=== PATIENT | male | born 1955 | race Caucasian/White ===

== ENCOUNTER 2018-06-22 20:13 | Observation (INO) | payer OTHER ==
[~2018-06-22] VITALS: Ht 193 cm; Wt 99.1 kg
[~2018-06-22 20:13] MED LIST: AVAPRO150 MG PO; GLUCOPHAGE1000 MG PO; JANUVIA100 MG PO; LANSOPRAZOLE30 M1 PO; LIPITOR10 MG PO; LOFIBRA160 MG PO; Z.0.DIOVAN160 MG PO; Z.0.NEXIUM40 MG PO; Z.0.TRICOR145 MG PO
[2018-06-22 21:15] LABS: BASOPHILS # (AUTO) 0.1 (0.0-0.1); BASOPHILS % 0.9 % (0.0-1.0); EOSINOPHILS # (AUTO) 0.1 (0.0-0.4); EOSINOPHILS % 1.2 % (0.0-6.0); HEMATOCRIT 41.3 % (38.2-49.6); MEAN CORPUSCULAR HEMOGLOBIN 30.4 pg (28-32); MEAN CORPUSCULAR HGB CONC 36.3 g/dL (31-35); MEAN CORPUSCULAR VOLUME 83.8 fL (81-99); MONOCYTES # (AUTO) 0.6 (0.2-0.8); MONOCYTES % 9.8 % (4.4-11.3); NEUTROPHILS # (AUTO) 3.8 (2.1-6.9); NEUTROPHILS % 57.5 % (38.7-80.0); PLATELET COUNT 248 x10e3/uL (140-360); RED BLOOD COUNT 4.93 x10e6/uL (4.3-5.7); RED CELL DISTRIBUTION WIDTH 12.3 % (11.7-14.4)
[2018-06-22 21:22] LABS: BILIRUBIN,URINE NEGATIVE (NEGATIVE); CLARITY,URINE SL CLOUDY (CLEAR); COLOR,URINE YELLOW (YELLOW); KETONES,URINE NEGATIVE (NEGATIVE); LEUKOCYTE ESTERASE ,URINE NEGATIVE (NEGATIVE); NITRITE,URINE NEGATIVE (NEGATIVE); PROTEIN,URINE DIPSTICK NEGATIVE (NEGATIVE); URINE UROBILINOGEN 0.2 mg/dL (0.2 - 1)
[2018-06-22 21:22] LABS: INR 0.9; PROTHROMBIN TIME 11.4 seconds (11.9-14.5)
[2018-06-22 21:23] LABS: PARTIAL THROMBOPLASTIN TIME 23.4 seconds (23.8-35.5)
[2018-06-22 21:29] LABS: ALANINE AMINOTRANSFERASE 41 IU/L (0-55); ALBUMIN 4.1 g/dL (3.5-5.0); ALBUMIN/GLOBULIN RATIO 1.3 (0.8-2.0); ALKALINE PHOSPHATASE 94 IU/L (40-150); ANION GAP 17.7 mmol/L (8-16); BLOOD UREA NITROGEN 14 mg/dL (7-26); BUN/CREATININE RATIO 15 (6-25); CALCIUM 9.6 mg/dL (8.4-10.2); CARBON DIOXIDE 22 mmol/L (22-29); CHLORIDE 102 mmol/L (98-107); CREATINE KINASE 100 IU/L (30-200); CREATININE, SERUM 0.91 mg/dL (0.72-1.25); EST GLOMERULAR FILTRATION RATE > 60 ML/MIN (60-); GLUCOSE 257 mg/dL (74-118); POTASSIUM 3.7 mmol/L (3.5-5.1); SODIUM 138 mmol/L (136-145)
--- NOTE | 2018-06-22 22:24 | Diagnostic Imaging Report ---
History:Left-sided numbness Comparison studies: None Technique: Axial images were obtained from the skull base to the vertex. Coronal and sagittal images reconstructed from the axial data. Intravenous contrast: None Findings: Scalp/skull: No abnormalities. Extra-axial spaces: No masses. No fluid collections. Brain sulci: Appropriate for age Ventricles: Normal in size and configuration. No hydrocephalus. Parenchyma: Subtle hypodensities in the supratentorial white matter are small vessel ischemic changes. No masses, hemorrhage, acute or chronic cortical vascular insults. Sellar/suprasellar region: No abnormalities. Craniocervical junction: Patent foramen magnum. No Chiari one malformation. Incidental findings: Mucosal thickening in the posterior wall of the right sphenoid sinus Atherosclerotic calcifications in the carotid siphons and vertebral arteries. Impression: 1. Mild supratentorial white matter small vessel ischemic changes. 2. Otherwise, no abnormalities. Signed by: Dr. Surinder Bey M.D. on 06/22/2018 10:21 PM
--- NOTE | 2018-06-22 22:31 | Diagnostic Imaging Report ---
EXAMINATION: CHEST SINGLE (PORTABLE) INDICATION: Left-sided numbness. COMPARISON: None FINDINGS: TUBES and LINES: None. LUNGS: Lungs are well inflated. Lungs are clear. There is no evidence of pneumonia or pulmonary edema. PLEURA: No pleural effusion or pneumothorax. HEART AND MEDIASTINUM: The cardiomediastinal silhouette is unremarkable. BONES AND SOFT TISSUES: No acute osseous lesion. Soft tissues are unremarkable. UPPER ABDOMEN: No free air under the diaphragm. IMPRESSION: No acute thoracic abnormality. Signed by: Dr. Chivo Sharma M.D. on 06/22/2018 10:28 PM
[2018-06-22] MEDS ORDERED: SODIUM CHLORIDE FLUSH 10 ML SYR INJ PRN (23:30)
[2018-06-22] MEDS ORDERED: DEXTROSE 50% SYRINGE 50 ML IV PRN (23:30)
[2018-06-22] MEDS ORDERED: ONDANSETRON HCL INJ 2 MG/ML VIAL IV PRN (23:30)
[2018-06-22] MEDS ORDERED: ASPIRIN 81 MG CHEW TAB PO ONE (23:30)
[2018-06-23 06:09] LABS: ALANINE AMINOTRANSFERASE 36 IU/L (0-55); ALBUMIN 3.7 g/dL (3.5-5.0); ALBUMIN/GLOBULIN RATIO 1.6 (0.8-2.0); ALKALINE PHOSPHATASE 75 IU/L (40-150); ANION GAP 15.4 mmol/L (8-16); BLOOD UREA NITROGEN 16 mg/dL (7-26); BUN/CREATININE RATIO 20 (6-25); CALCIUM 8.9 mg/dL (8.4-10.2); CARBON DIOXIDE 23 mmol/L (22-29); CHLORIDE 103 mmol/L (98-107); CREATININE, SERUM 0.82 mg/dL (0.72-1.25); EST GLOMERULAR FILTRATION RATE > 60 ML/MIN (60-); GLUCOSE 216 mg/dL (74-118); POTASSIUM 3.4 mmol/L (3.5-5.1); SODIUM 138 mmol/L (136-145)
--- NOTE | 2018-06-23 07:02 | History and Physical ---
POOR AUDIO QUALITY IN MULTIPLE PORTIONS OF THE REPORT REASON FOR ADMISSION: TIA. HISTORY OF PRESENT ILLNESS: Patient is a 62-year-old gentleman with diabetes, who acute sudden-onset of left-sided numbness on the face and left lower leg, where he called me and I told him to come to the emergency room. Brain CT in the ER was negative. He is being admitted for further . PAST MEDICAL HISTORY: Diabetes. MEDICATIONS: See JAN. ALLERGIES: NONE. SOCIAL: Nonsmoker, nondrinker. He lives alone with his . FAMILY HISTORY: Noncontributory. PHYSICAL EXAM VITAL SIGNS: 123/74, pulse 87, sats 98% on room air, temperature 98.6. GENERAL: He is in no apparent distress. NECK: Supple. No lymphadenopathy, no bruits. CARDIOVASCULAR: Regular rate and rhythm. LUNGS: Clear to auscultation bilaterally. ABDOMEN: Good bowel sounds, soft, nontender. EXTREMITIES: There is no clubbing, cyanosis. NEUROLOGICAL: Moves all extremities times 4. Cranial nerves II through XII are intact. ASSESSMENT AND PLAN 1. Transient ischemic attack. Will continue with current care. Continue with aspirin. Will consult neurology. Get carotid Dopplers 2. Diabetes. Continue current care and monitor. Please see hospital chart for full details. Job#: [id number] [id number]
[2018-06-23 07:26] LABS: CREATINE KINASE 67 IU/L (30-200)
[2018-06-23] MEDS: INSULIN REGULAR, HUMAN 100 UNIT/1 ML 3ML VIAL SQ SCH ×4 (08:00→21:00)
[2018-06-23 08:13] LABS: BASOPHILS # (AUTO) 0.1 (0.0-0.1); BASOPHILS % 1.2 % (0.0-1.0); EOSINOPHILS # (AUTO) 0.1 (0.0-0.4); EOSINOPHILS % 1.6 % (0.0-6.0); HEMATOCRIT 37.7 % (38.2-49.6); HEMOGLOBIN 13.5 g/dL (14.0-18.0); LYMPHOCYTES # (AUTO) 1.4 (1.0-3.2); LYMPHOCYTES % 24.5 % (18.0-39.1); MEAN CORPUSCULAR HGB CONC 35.8 g/dL (31-35); MEAN CORPUSCULAR VOLUME 83.8 fL (81-99); MONOCYTES # (AUTO) 0.6 (0.2-0.8); MONOCYTES % 10.4 % (4.4-11.3); NEUTROPHILS # (AUTO) 3.6 (2.1-6.9); NEUTROPHILS % 62.1 % (38.7-80.0); PLATELET COUNT 193 x10e3/uL (140-360); RED CELL DISTRIBUTION WIDTH 12.2 % (11.7-14.4)
[2018-06-23] MEDS ORDERED: SODIUM CHLORIDE 0.9% 50ML 50 ML ONE (08:38)
[2018-06-23] MEDS ORDERED: GADOBENATE DIMEGLUMINE 1 ML IV ONE (08:38)
[2018-06-23] MEDS ORDERED: ASPIRIN 81 MG ENTERIC COATED PO SCH (09:00)
[2018-06-23 15:16] LABS: CREATINE KINASE MB 0.4 ng/mL (0-5.0)
--- NOTE | 2018-06-23 16:11 | Diagnostic Imaging Report ---
EXAMINATION: Brain MRI and MR angiogram of the [place] and [place]ck CLINICAL HISTORY: PICA, left-sided numbness today before that lasted 5 minutes. COMPARISON: Head CT on 06/22/2018 TECHNIQUE: Brain: Sagittal T2; axial DWI, T2, FLAIR, T1-IR, T2 gradient echo; coronal FLAIR. MRAs: 3D TOF and 2D-TOF images were obtained of the brain and neck. Intravenous Contrast: 20 mL of MultiHance. BRAIN MRI FINDINGS: Parenchyma: 1. Scattered supratentorial white matter T2 in FLAIR hyperintense foci, most likely nonspecific chronic microvascular ischemic changes. 2. No mass, hemorrhage, acute or chronic infarcts. Skull: Unremarkable. Vessels: Expected flow voids present in the major arteries and dural sinuses. Extra-axial spaces: No abnormal signal intensity or mass effect. Brain volume: Within normal limits for age. Ventricles: No hydrocephalus or displacement. Foramen magnum: Unremarkable. Sella: Unremarkable. Paranasal / mastoid sinuses: No significant inflammatory disease. MRA OF THE [place] : The distal internal carotid, distal vertebral, basilar, and cerebral arteries are patent. No significant stenosis, occlusion, aneurysm, or arteriovenous malformation is seen. Anatomic variation: Anterior Communicating Artery: Not well visualized Posterior Communicating Arteries: Not well visualized Vertebral arteries: Codominant MRA OF THE NECK: If present, stenosis of the carotid bulbs is measured based on NASCET criteria i.e area of maximum stenosis compared to the cervical ICA distal to the bulb. Aortic arch and origin of the vessels: Unremarkable. Right Carotid Artery: The common carotid, carotid bulb, internal and external carotid arteries at the level of the neck are normal in caliber, and patent, no evidence of stenoses. Left Carotid Artery: The common carotid, carotid bulb, internal and external carotid arteries at the level of the neck are normal in caliber, and patent, no evidence of stenoses. Vertebral Arteries: Both are normal in morphology and caliber. Both are codominant. No significant stenosis is seen. IMPRESSION: 1. No acute or chronic brain infarct. 2. Unchanged mild chronic microvascular ischemic changes. 3. Normal MR angiogram of the head and neck. Particularly no major vessel occlusion or hemodynamically significant stenosis of the carotid or vertebral arteries in the head or neck. Signed by: Dr. Nalini Raymundo M.D. on 06/23/2018 4:08 PM
--- NOTE | 2018-06-23 16:11 | Diagnostic Imaging Report ---
EXAMINATION: Brain MRI and MR angiogram of the [place] CLINICAL HISTORY: PICA, left-sided numbness today before that lasted 5 minutes. COMPARISON: Head CT on 06/22/2018 TECHNIQUE: Brain: Sagittal T2; axial DWI, T2, FLAIR, T1-IR, T2 gradient echo; coronal FLAIR. MRAs: 3D TOF and 2D-TOF images were obtained of the brain and neck. Intravenous Contrast: 20 mL of MultiHance. BRAIN MRI FINDINGS: Parenchyma: 1. Scattered supratentorial white matter T2 in FLAIR hyperintense foci, most likely nonspecific chronic microvascular ischemic changes. 2. No mass, hemorrhage, acute or chronic infarcts. Skull: Unremarkable. Vessels: Expected flow voids present in the major arteries and dural sinuses. Extra-axial spaces: No abnormal signal intensity or mass effect. Brain volume: Within normal limits for age. Ventricles: No hydrocephalus or displacement. Foramen magnum: Unremarkable. Sella: Unremarkable. Paranasal / mastoid sinuses: No significant inflammatory disease. MRA OF THE [place] : The distal internal carotid, distal vertebral, basilar, and cerebral arteries are patent. No significant stenosis, occlusion, aneurysm, or arteriovenous malformation is seen. Anatomic variation: Anterior Communicating Artery: Not well visualized Posterior Communicating Arteries: Not well visualized Vertebral arteries: Codominant MRA OF THE NECK: If present, stenosis of the carotid bulbs is measured based on NASCET criteria i.e area of maximum stenosis compared to the cervical ICA distal to the bulb. Aortic arch and origin of the vessels: Unremarkable. Right Carotid Artery: The common carotid, carotid bulb, internal and external carotid arteries at the level of the neck are normal in caliber, and patent, no evidence of stenoses. Left Carotid Artery: The common carotid, carotid bulb, internal and external carotid arteries at the level of the neck are normal in caliber, and patent, no evidence of stenoses. Vertebral Arteries: Both are normal in morphology and caliber. Both are codominant. No significant stenosis is seen. IMPRESSION: 1. No acute or chronic brain infarct. 2. Unchanged mild chronic microvascular ischemic changes. 3. Normal MR angiogram of the head and neck. Particularly no major vessel occlusion or hemodynamically significant stenosis of the carotid or vertebral arteries in the head or neck. Signed by: Dr. Nalini Raymundo M.D. on 06/23/2018 4:08 PM
[2018-06-23] MEDS ORDERED: METFORMIN HCL1000 MG (19:15)
[2018-06-23] MEDS ORDERED: ATORVASTATIN CA20 MG (19:15)
[2018-06-23] MEDS ORDERED: LANSOPRAZOLE30 MG (19:15)
[2018-06-23] MEDS ORDERED: LOPRESSOR25 MG (19:15)
[2018-06-23 19:50] LABS: CHOLESTEROL 174 MD/DL (0-199); HDL CHOLESTEROL 35 MG/DL (40-60); TRIGLYCERIDES 699 MG/DL (0-149)
[2018-06-23 20:00] VITALS: BP 139/93
[2018-06-23 20:30] VITALS: BP 139/93
--- NOTE | 2018-06-23 20:45 | Consultation ---
DATE OF CONSULTATION: June 23, 2018 NEUROLOGY CONSULT NOTE HISTORY OF PRESENT ILLNESS: Mr. Mitchell is a 62-year-old [id number] man with past medical history significant for hypertension, hyperlipidemia, diabetes mellitus type 2, and coronary artery disease admitted to [facility] under observation status on June 22, 2018 for a transient ischemic attack. At 1915 on June 22, 2018, the patient experienced the sudden onset of left hemibody numbness and tingling as well as dizziness which is further described as a lightheaded sensation. Mr. Mitchell does not endorse a visual field cut or other disturbance, dysarthria, aphasia,, facial droop, hemiparesis, impairment of gait or balance, or confusion. The left hemibody numbness and tingling and dizziness persisted for approximately 4 to 5 minutes, then spontaneously resolved. Mr. Mitchell called his primary care physician, Dr. Evgeny Silverio, to advise him of his symptoms. Dr. Silverio told the patient to proceed to the Emergency Center at [facility] for further evaluation. Upon arrival in the Emergency Center, the patient was afebrile with a blood pressure 170/117 mmHg and pulse 113 beats per minute. His neurological examination was documented as being nonfocal. Mr. Mitchell was given an NIH stroke scale score of 0. A CT of the brain without contrast was performed while the patient was in the Emergency Center. This study did not show evidence of recent large territorial ischemia or hemorrhage. As stated above, Mr. Mitchell was admitted to [facility] under observation status for further evaluation and treatment of his symptoms. Mr. Mitchell does not report experiencing similar symptoms previously. REVIEW OF SYSTEMS: Numbness and tingling over the left mea body, dizziness which is further described as lightheadedness, chronic low back pain. Otherwise the 12 point review of systems is negative. PAST MEDICAL HISTORY: Hypertension, hyperlipidemia, diabetes mellitus type 2, coronary artery disease, arthritis, gastroesophageal reflux disease. FAMILY MEDICAL HISTORY: The patient's paternal and maternal grandparents are . Their medical histories are unknown. The patient's father is alive. He has hypertension as well as a cardiac arrhythmia, status post AICD placement. Mr. Mitchell's mother is . She had diabetes mellitus, coronary artery disease, and congestive heart failure. Mr. Mitchell has 5 siblings, 3 brothers and 2 sisters, all of whom are alive and healthy. The patient has no biological children. PAST SURGICAL HISTORY: Cardiac stent placement, right foot surgery, tonsillectomy. PAST HOSPITALIZATIONS: Surgeries/procedures as listed. SOCIAL HISTORY: Patient is . 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 The patient does not report current or prior tobacco, alcohol, or recreational drug use. HOME MEDICATIONS: Aspirin 81 mg by mouth daily, metoprolol tartrate 25 mg by mouth twice daily, atorvastatin 20 mg by mouth at bedtime daily, metformin 1000 mg by mouth twice daily, lansoprazole 30 mg by mouth daily. ALLERGIES: NO KNOWN DRUG ALLERGIES. NO KNOWN FOOD ALLERGIES. NO KNOWN ALLERGIES TO LATEX. NO KNOWN ALLERGIES TO IODINE OR OTHER CONTRAST MATERIALS. PHYSICAL EXAMINATION: VITAL SIGNS: Height 76 inches, weight 218 pounds, BMI 26.5 kg per meter squared. Blood pressure 128/94 mmHg, pulse 80 beats per minute. Respiratory rate 20 breaths per minute. Oxygen saturation 97% on room air. GENERAL: The patient is awake and alert. Does not appear distressed. Overweight. HEENT: Normocephalic and atraumatic. Pupils are equal, round and reactive to light. Moist mucous membranes. NECK: Supple. No appreciable thyromegaly. No appreciable carotid bruits. CARDIOVASCULAR: S1 and S2. Regular rate and rhythm. No murmurs, rubs or gallops. RESPIRATORY: Clear to auscultation bilaterally. No wheezes, rhonchi or rales. EXTREMITIES: The skin is warm and dry. No clubbing, cyanosis or edema. The posterior tibial and dorsalis pedis pulses are 1+ and symmetric. SKIN: No rashes or lesions. NEUROLOGIC: Memory/attention: The patient is awake and alert. Oriented to person, place, time, and situation. CRANIAL NERVES: Cranial nerve I: Not tested. Cranial nerves II, III, IV, : Pupils are equal and round, react briskly to light (from 4 mm to 2 mm). Extraocular movements intact. No nystagmus. Cranial nerve V: Sensation to light touch and pinprick is intact in the bilateral V1 through V3 distributions. Strength of the temporalis and masseter muscles is within normal limits. Cranial nerve VII: The face is symmetric, as are all facial movements. Strength is within normal limits. Cranial nerve VIII: Hearing is intact to finger rub bilaterally. Cranial nerve IX and X: The soft palate elevates equally and symmetrically. Cranial nerve XI: Normal strength of the bilateral sternocleidomastoid and trapezius muscles. Cranial nerve XII: The tongue protrudes midline and moves symmetrically from side to side. STRENGTH: Bulk is normal, and strength is 5/5 in the bilateral deltoids, biceps, triceps, wrist flexors and extensors, finger flexors and extensors, intrinsic hand muscles, hip flexors, knee flexors and extensors, ankle dorsiflexion and plantar flexion, and intrinsic foot muscles. Tone is normal. DTRs: Deep tendon reflexes are 1+ and symmetric at the triceps, biceps, brachioradialis, and patellas. Deep tendon reflexes are absent and symmetric at the Achilles. Plantar responses are flexor bilaterally. SENSATION: Intact to light touch and pinprick in both arms and both legs. CEREBELLAR: Tddsrh-hurh-haetud and heel-pelletier movements are intact without dysmetria or other impairment. GAIT: Deferred. SPEECH: Spontaneous speech is normal without appreciable dysarthria or aphasia. Repetition is intact. INVOLUNTARY MOVEMENTS: None. PRONATOR DRIFT: None. LABORATORY DATA: The complete metabolic panel is within normal limits with the exception of mild hypokalemia with potassium of 3.4 and an elevated serum glucose of 216. Creatinine kinase 100, 67, 58. CK-MB 0.60, 0.50, 0.40. Troponin I less than 0.001, less than 0.001, 0.004. The CBC with differential and platelets reveals a white blood cell count of 5.76 with a normal differential. The hemoglobin and hematocrit are 13.5 and 37.7, respectively. The platelet count is 193,000. PT 11.4, INR 0.90, PTT 23.4. A urinalysis was significant for 3+ glucose and trace blood. DIAGNOSTIC STUDIES: Electrocardiogram 06/22/2018: Sinus tachycardia at 104 beats per minute with premature ventricular contractions. CT of the brain without contrast 06/22/2018: On my review, there is no evidence of recent large territorial ischemia, hemorrhage, mass, or mass effect. There are findings compatible with chronic small vessel ischemic disease. Cerebral volumes are appropriate for age. MRI of the brain without contrast 06/23/2018: Once again, on my review, there is no evidence of recent large territorial ischemia, hemorrhage, mass, or mass effect. No prior vascular insults are appreciated. Cerebral volumes are appropriate for age. There are scattered nonspecific T2 /flair hyperintense foci in the deep white matter compatible with chronic small vessel ischemic disease. MRA of the brain and neck without contrast 06/23/2018: There is no hemodynamically significant stenosis of either the intra or extracranial vasculature. ASSESSMENT: Mr. Mitchell is a 62-year-old ijfeq-dcxm-iraproas man with past medical history significant for hypertension, hyperlipidemia, diabetes mellitus type 2, and coronary artery disease admitted to [facility] on June 22, 2018 with a right subcortical middle cerebral artery transient ischemic attack. At present, the patient's neurological examination is nonfocal. His laboratory data and other diagnostic studies have been reviewed and are documented above. RECOMMENDATIONS: 1. A lipid panel and hemoglobin A1c will be ordered to complete a stroke evaluation. 2. An echocardiogram will be ordered to complete a stroke evaluation. 3. Treatment with aspirin will be continued, but the dose will be increased to 325 mg by mouth daily for stroke prophylaxis. 4. Patient's blood pressure may be normalized. His goal blood pressure is less than 130/70 mmHg. His home medication of metoprolol tartrate 25 mg by mouth twice daily may be continued. 5. Follow up the results of the patient's lipid panel. His goal total cholesterol is less than 200 with a LDL of less than 70. His home medication of atorvastatin 20 mg by mouth at bedtime daily may be continued. 6. Follow up the results of the hemoglobin A1c. Patient's goal hemoglobin A1c is less than 7.0. Continue Mr. Mitchell's home of metformin 1000 mg by mouth twice daily. Tight glycemic control is recommended while the patient is hospitalized. 7. Physical therapy and speech therapy consultations will be deferred as the patient has no deficits on neurological examination. 8. GI prophylaxis with Pepcid 20 mg by mouth twice daily with meals. DVT prophylaxis with Lovenox 40 mg subcutaneously daily. 9. Defer treatment of the remaining medical comorbidities to the primary and other services following the patient. Thank you for this consultation. I will continue to follow the patient while he remains in the hospital. Time spent: 70 minutes. Job#: [id number] GH SY
[2018-06-23] MEDS ORDERED: ATORVASTATIN 20 MG TAB PO SCH (21:00)
[2018-06-24] VITALS: BP 125/79
[2018-06-24 04:00] VITALS: BP 146/95
[2018-06-24 07:20] VITALS: BP 147/81
[2018-06-24] MEDS ORDERED: PANTOPRAZOLE SOD 40 MG TABEC PO SCH (07:30)
[2018-06-24] MEDS ORDERED: FAMOTIDINE 20 MG TAB PO SCH (07:30)
[2018-06-24] MEDS ORDERED: GLIMEPIRIDE2 MG PO (08:05)
[2018-06-24] MEDS ORDERED: LIPITOR20 MG (08:05)
[2018-06-24] MEDS ORDERED: METOPROLOL TARTRATE 25 MG TAB PO SCH (09:00)
[2018-06-24] MEDS ORDERED: ASPIRIN 325 MG TAB PO SCH (09:00)
[2018-06-24] MEDS ORDERED: NON-FORMULARY MEDICATION (Metformin Hcl (Glucophage) 1,000 MG) PO SCH (09:00)
[2018-06-24] MEDS ORDERED: NON-FORMULARY MEDICATION (Lansoprazole 30 MG) PO SCH (09:00)
[2018-06-24] MEDS ORDERED: METFORMIN HCL 500 MG TAB PO SCH (09:00)
[2018-06-24] MEDS ORDERED: ASPIRIN 81 MG ENTERIC COATED PO SCH (09:00)
[2018-06-24] MEDS ORDERED: VALSARTAN 160 MG TAB PO SCH (09:00)
[2018-06-24] MEDS ORDERED: ATORVASTATIN 20 MG TAB PO SCH (09:00)
--- NOTE | 2018-06-24 09:25 | Cardiology Report ---
DATE OF STUDY: June 23, 2018 DOPPLER SCAN OF THE CAROTIDS The left and right carotid arteries were interrogated using the duplex scanning method. Left carotid artery had a velocity of 1.3 meters per second involving the left proximal common carotid artery. Left vertebral flow appears to be antegrade. Right carotid artery had a velocity of 1.5 meters per second involving the right external carotid artery. Right vertebral flow appears to be adequate. CONCLUSIONS 1. No high-grade stenosis bilaterally. 2. Borderline velocity of 1.3 meters per second is noted in the left common carotid artery. 3. Mildly elevated velocity of 1.5 meters per second is noted in the proximal right external carotid artery. Mild stenosis cannot be excluded. 4. Vertebral flow appears to be normal direction bilaterally. Job#: [id number] RI cc:AZALEA MERINO MD
[2018-06-24] MEDS ORDERED: ENOXAPARIN SOD INJ 40 MG/0.4 ML SYR SC SCH (17:00)
== END 2018-06-24 09:41 | disposition home or self-care (01) ==
LOC: ER 20:13 → ERHOLD 23:50 → MED/SURG 06-23 21:06
PROVIDERS: ADMIT Internal Medicine; ATTEND Internal Medicine
DX: G45.9 Transient cerebral ischemic attack, unspecified (principal); E11.9 Type 2 diabetes mellitus without complications; E78.5 Hyperlipidemia, unspecified; K21.9 Gastro-esophageal reflux disease without esophagitis; I10 Essential (primary) hypertension; I25.10 Atherosclerotic heart disease of native coronary artery without angina pectoris
CPT/HCPCS: 36415 ×2; 70450; 70544; 70549; 70551; 71045; 80053 ×2; 80061; 81001; 82550 ×2; 82553 ×2; 82948; 83036; 84484 ×2; 85025 ×2; 85610; 85730; 93005; 93880; 99284; G0378 ×3; S0164